=== PATIENT | female | born 1960 | race Two or more races ===

== ENCOUNTER 2017-04-06 19:33 | Emergency (ER) | payer BC ==
--- NOTE | 2017-04-06 19:48 | EDPHY ---
H & P Time Seen by Provider: 04/06/17 19:41 HPI/ROS: CHIEF COMPLAINT: Abrasion HISTORY OF PRESENT ILLNESS: The patient is a 56-year-old female who comes to the emergency department complaining of an abrasion to her left knee. She states that she tripped while running 3 weeks ago and abraded her left knee. She is concerned because it began bleeding again today when she take off the bandage. It is not erythematous or draining. No swelling. Ambulates without difficulty. She denies any history of diabetes or immunocompromise. REVIEW OF SYSTEMS: Constitutional: denies: chills, fever, recent illness, recent injury EENTM: denies: blurred vision, double vision, nose congestion Respiratory: denies: cough, shortness of breath Cardiac: denies: chest pain, irregular heart rate, lightheadedness, palpitations Gastrointestinal/Abdominal: denies: abdominal pain, diarrhea, nausea, vomiting, blood streaked stools Genitourinary: denies: dysuria, frequency, hematuria, pain Musculoskeletal: denies: joint pain, muscle pain Skin: See above Neurological: denies: headache, numbness, paresthesia, tingling, dizziness, weakness Hematologic/Lymphatic: denies: blood clots, easy bleeding, easy bruising Immunologic/allergic: denies: HIV/AIDS, transplant EXAM: GENERAL: Well-appearing, well-nourished and in no acute distress. HEAD: Atraumatic, normocephalic. EYES: Pupils equal round and reactive to light, extraocular movements intact, sclera anicteric, conjunctiva are normal. ENT: TMs normal, nares patent, oropharynx clear without exudates. Moist mucous membranes. NECK: Normal range of motion, supple without lymphadenopathy or JVD. LUNGS: Breath sounds clear to auscultation bilaterally and equal. No wheezes rales or rhonchi. HEART: Regular rate and rhythm without murmurs, rubs or gallops. ABDOMEN: Soft, nontender, normoactive bowel sounds. No guarding, no rebound. No masses appreciated. BACK: No CVA tenderness, no spinal tenderness, step-offs or deformities EXTREMITIES: Normal range of motion, no pitting or edema. No clubbing or cyanosis. NEUROLOGICAL: Cranial nerves II through XII grossly intact. Normal speech, normal gait. 5/5 strength, normal movement in all extremities, normal sensation PSYCH: Normal mood, normal affect. SKIN: Patient has a deep abrasion to her left knee. No visible foreign body. No erythema. No purulence. Small punctate area of bleeding 1 bandage removed. Source: Patient Exam Limitations: No limitations - Medical/Surgical History Hx Asthma: No Hx Chronic Respiratory Disease: No Hx Diabetes: No Hx Cardiac Disease: No Hx Renal Disease: No Hx Cirrhosis: No Hx Alcoholism: No Hx HIV/AIDS: No Hx Splenectomy or Spleen Trauma: No Other PMH: GB - Family History Significant Family History: No pertinent family hx - Social History Alcohol Use: Sober Drug Use: None Constitutional: Initial Vital Signs Temperature (C) 36.8 C 04/06/17 19:35 Heart Rate 70 04/06/17 19:35 Respiratory Rate 16 04/06/17 19:35 Blood Pressure 154/67 H 04/06/17 19:35 O2 Sat (%) 94 04/06/17 19:35 O2 Delivery Mode Room Air Allergies/Adverse Reactions: No Known Allergies Allergy (Verified 04/06/17 19:44) Home Medications: Medication Instructions Recorded Advil 04/06/17 Medical Decision Making ED Course/Re-evaluation: The patient abrasion was cleaned and dressed with nonadherent dressing. We instructed her on wound care. This was likely take several more weeks to heal. We discussed symptoms to watch for infection. No visible foreign body. I did offer an x-ray to make sure and she declined. refused Td Differential Diagnosis: Partial list of the Differential diagnosis considered include but were not limited to; abrasion, laceration and although unlikely based on the history and physical exam, I also considered fracture, joint injury. I discussed these differential diagnoses and the plan with the patient as well as the usual and expected course. The patient understands that the diagnosis is provisional and that in medicine we are not always correct and that further workup is often warranted. Usual and customary warnings were given. All of the patient's questions were answered. The patient was instructed to return to the emergency department should the symptoms at all worsen or return, otherwise to followup with the physician as we discussed. - Data Points Medications Given: Discontinued Medications Diphtheria/Tetanus/Acell Pertussis (Boostrix) 0.5 ml IM .ONCE ONE Stop: 04/06/17 19:55 Last Admin: 09/16/17 20:02 Dose: Not Given Departure - Departure Disposition: Home, Routine, Self-Care Clinical Impression: Abrasion of left knee Qualifiers: Encounter type: initial encounter Qualified Code(s): S80.212A - Abrasion, left knee, initial encounter Condition: Fair Instructions: Abrasion (ED) Referrals: NONE *PRIMARY CARE P,. [Primary Care Provider] - As per Instructions Deborah Villalobos MD [Medical Doctor] - As per Instructions
[2017-04-06 19:53] VITALS: BP 154/67; PULSE 70; RESP 16; TEMP 98.2; O2SAT 94
[2017-04-06] MEDS ORDERED: TDAP ADULT 0.5 ML INJ (BOOSTRIX) IM ONE (19:54)
== END 2017-04-06 20:00 | disposition home or self-care (01) ==
LOC: CED 19:33
DX: S80.212A Abrasion, left knee, initial encounter (principal); Z23 Encounter for immunization; W18.40XA Slipping, tripping and stumbling without falling, unspecified, initial encounter; Y99.8 Other external cause status; Y93.02 Activity, running